=== PATIENT | female | born 1940 | race Two or more races ===

== ENCOUNTER 2017-03-28 23:07 | Inpatient (IN) | payer SELFPAY ==
[~2017-03-28] VITALS: Ht 162.6 cm; Wt 93.0 kg
[2017-03-28 23:16] VITALS: BP 170/83
[2017-03-28 23:51] LABS: BASOPHILS % (AUTO) 0.7 % (0.0-2.0); EOSINOPHILS % (AUTO) 0.7 % (0.0-3.0); LYMPHOCYTES % (AUTO) 13.5 % (20.0-45.0); MEAN CORPUSCULAR HEMOGLOBIN 31.8 PG (27.0-31.0); MEAN CORPUSCULAR HGB CONC 33.4 G/DL (32.0-36.0); MEAN CORPUSCULAR VOLUME 95 FL (80-99); MEAN PLATELET VOLUME 6.9 FL (6.5-10.1); MONOCYTES % (AUTO) 9.8 % (1.0-10.0); NEUTROPHILS % (AUTO) 75.3 % (45.0-75.0); PLATELET COUNT 204 K/UL (150-450); RED BLOOD COUNT 4.45 M/UL (4.20-5.40); RED CELL DISTRIBUTION WIDTH 13.1 % (11.6-14.8); WHITE BLOOD COUNT 13.8 K/UL (4.8-10.8)
[2017-03-29] VITALS (7 sets, daily range): BP systolic 114–139; BP diastolic 63–84
[2017-03-29 00:09] LABS: TROPONIN I < 0.30 ng/mL (<=0.30)
[2017-03-29 00:12] LABS: ALANINE AMINOTRANSFERASE 16 U/L (3-33); ANION GAP 16 (5-15); ASPARTATE AMINO TRANSFERASE 20 U/L (5-40); CALCIUM 9.1 mg/dL (8.6-10.2); CARBON DIOXIDE 25 mEQ/L (20-30); CHLORIDE 94 mEQ/L (98-107); CREATININE 0.8 mg/dL (0.5-0.9); HEMOLYSIS 3; POTASSIUM 4.3 mEQ/L (3.4-4.9); SODIUM 135 mEQ/L (135-145); TOTAL PROTEIN 7.7 g/dL (6.6-8.7)
[2017-03-29] MEDS ORDERED: Morphine Sulfate 2mg/ml Inj IVP ONE (00:15)
[2017-03-29 00:22] LABS: CKMB < 1.5 ng/mL (< 3.8)
--- NOTE | 2017-03-29 00:23 | Emergency Room Report ---
History of Present Illness General Chief Complaint: Chest Pain Source: Patient, Family Member, EMS Present Illness HPI [id number] BIBEMS for chest pain since 7pm. Pain is sharp constant, central, non- radiating. Worse with inspiration. No recent fever/chills, SOB, abd pain, nausea/vomiting, diarrhea. No previous AMI, PE. No leg pain/swelling. Takes ibuprofen ocassionaly for left knee pain. Was given nitro spray by EMS. History of HTN. No other medical problems. Denies ETOH, smoking, drugs. Allergies: Coded Allergies: No Known Allergies (Unverified , 03/28/17) Patient History Past Medical History: HTN Past Surgical History: none Pertinent Family History: none Social History: Denies: alcohol use, drug use, smoking Last Menstrual Period: NONE Now: No Immunizations: UTD Reviewed Nursing Documentation: PMH: Agreed, PSxH: Agreed Nursing Documentation-PMH Past Medical History: No History, Except For Hx Hypertension: Yes Review of Systems All Other Systems: negative except mentioned in HPI Physical Exam Vital Signs Date Time Temp Pulse Resp B/P Pulse Ox O2 Delivery O2 Flow Rate FiO2 03/28/17 23:13 98.1 72 18 170/83 98 Room Air Sp02 EP Interpretation: reviewed, abnormal General Appearance: normal inspection, well appearing, alert, GCS 15, non-toxic , mild distress Head: normocephalic, atraumatic Eyes: bilateral eye EOMI, bilateral eye PERRL ENT: normal ENT inspection, hearing grossly normal, normal voice Neck: normal inspection, full range of motion, supple, no bony tend Respiratory: normal inspection, lungs clear, normal breath sounds, no rhonchi, no respiratory distress, no retraction, no accessory muscle use, no wheezing, other - Chest pain very reproducible midline Cardiovascular #1: regular rate, rhythm, no edema Gastrointestinal: normal inspection, normal bowel sounds, non tender, soft, no guarding, no hernia Genitourinary: no CVA tenderness Neurologic: normal inspection, alert, oriented x3, responsive, 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 I attest that this information is true, accurate and complete to the best of my knowledge. I understand that any falsification, omission, or concealment of material fact may subject me to administrative, civil, or criminal liability. This patient warrants hospital admission for extreme of age and has a condition that cannot be treated as outpatient. Diagnostic Impression: Primary Impression: Chest pain Qualified Codes: R07.1 - Chest pain on breathing Additional Impression: Pericardial effusion without cardiac tamponade ER Course Chest pain - Leuks 13.8K, likely reactionary. - No cough, fever/chills, other clinical signs of PNA. CXR does not show PNA - ECG shows TWI in V 1-3. Troponin 0. Low voltage - Mildly elevated D-dimer - CTA: No PE, 8mm of pericardial effusion - Bedside echo does not show tamponade - Will elevated leuks 13k, trace pericardial effusion, chest pain, ?alex/ myocarditis - Improved pain s/p morphine, toradol - Endorsed to Dr Gant for tele bed at 2am - Still needs ACS rule out EKG Diagnostic Results Rate: normal Rhythm: NSR ST Segments: other - TWI in V1-3 Other Impression Low voltage ASA given to the pt in ED: No Rhythm Strip Diag. Results EP Interpretation: yes Rate: 73 Rhythm: NSR, no PVC's, no ectopy Chest X-Ray Diagnostic Results EP Interpretation: Yes Findings: no consolidation, no effusion, no pneumothorax, no acute cardiopulmonary disease Number of Views: 1 Last Vital Signs Date Time Temp Pulse Resp B/P Pulse Ox O2 Delivery O2 Flow Rate FiO2 03/28/17 23:16 72 18 Room Air 03/28/17 23:14 98.1 170/83 95 Status: improved Disposition: ADMITTED INPATIENT Condition: Serious Referrals: NOT CHOSEN IPA/,REFERRING (PCP) WILEY SHIRLEY M.D. March 29, 2017 00:23
[2017-03-29] MEDS ORDERED: IBUPROFEN600 MG ORAL (01:49)
[2017-03-29] MEDS ORDERED: LOSARTAN POTASS25 M1 PO (01:49)
[2017-03-29] MEDS ORDERED: Ketorolac 30mg Inj IV ONE (02:15)
[2017-03-29] MEDS ORDERED: DuoNeb 0.5-3(2.5)mg/3ml neb HHN PRN (06:45)
[2017-03-29] MEDS ORDERED: Diltiazem 25mg/5ml IV PRN (06:45)
[2017-03-29] MEDS ORDERED: Enalaprilat 2.5mg/2ml Inj IV PRN (06:45)
[2017-03-29] MEDS ORDERED: Nitroglycerin Subl 0.4mg tab (Bottle Of 25) SL PRN (06:45)
[2017-03-29] MEDS ORDERED: Ketorolac 30mg Inj IV PRN ×2 (06:45→22:00)
[2017-03-29] MEDS ORDERED: Morphine Sulfate 2mg/ml Inj IVP PRN (06:45)
[2017-03-29] MEDS ORDERED: Miralax 17gm pkt ORAL PRN (06:45)
[2017-03-29] MEDS: Aspirin Baby 81mg ORAL SCH (08:24)
[2017-03-29] MEDS: Heparin 5000 units/ml inj SUBQ SCH ×2 (08:29→21:27)
--- NOTE | 2017-03-29 08:59 | Diagnostic Imaging Report ---
Indication: Abdominal Pain Technique: Continuous helical transaxial imaging of the chest, abdomen and pelvis was obtained from the thoracic inlet to the pubic symphysis during rapid intravenous contrast administration. Arterial phase of enhancement obtained. Coronal 2-D reformats were also obtained and maximum intensity projection images in multiple planes. Study obtained in a Siemens sensation [address] Total Dose length Product (DLP): [address] Dose Index Volume (CTDIvol): 8, 81, 22 mGy Comparison: None Findings: There is reasonable opacification of the pulmonary artery. No filling defect to suggest pulmonary embolus. The thoracic aorta and abdominal aorta appear tortuous and atherosclerotic disease. Some elongation noted but no evidence of dissection or aneurysm. The major thoracic arch vessels including the brachiocephalic artery, left common carotid artery and subclavian arteries appear normal at their origins. Celiac artery, SMA, single, bilateral renal arteries and the SARINA appear widely patent. Common and external iliac arteries are unremarkable. There is a small pericardial effusion. The heart is enlarged. Reticular densities are noted at the periphery of the lower lobes. Some of this is likely due to atelectasis. Some degree of mild fibrosis not excluded. There is no consolidation or pleural effusion identified. The liver is low in attenuation consistent with fatty infiltration. There is some breathing motion artifact present. The gallbladder is grossly unremarkable in appearance. Few diverticula are noted within the colon. No definite evidence of diverticulitis. The uterus is absent. Impression: Evidence of mild atherosclerotic vascular disease. No evidence of aneurysm or dissection. No evidence of pulmonary embolus grossly evaluated. Small pericardial effusion versus thickening. Cardiac enlargement Basilar atelectasis and/or fibrosis. Status post hysterectomy Diverticulosis of the colon Fatty liver. Breathing motion artifact [facility] has communicated the preliminary results to the Emergency Department. Their findings are largely concordant with this report. The CT scanner at [facility] is accredited by the [employer] [place] [employer] and the scans are performed using dose optimization techniques as appropriate to a performed exam including Automatic Exposure control.
[2017-03-29] MEDS ORDERED: Losartan 25mg tab ORAL SCH (09:00)
[2017-03-29] MEDS ORDERED: Pneumococcal Vaccine 25mcg/0.5ml IM ONE (09:00)
[2017-03-29 10:40] LABS: TROPONIN I < 0.30 ng/mL (<=0.30)
--- NOTE | 2017-03-29 10:45 | Consultation ---
DATE OF CONSULTATION: 03/29/2017 CARDIOLOGY CONSULTATION CONSULTING PHYSICIAN: Musa Puga M.D. REFERRING PHYSICIAN: Stacey Morales M.D. REASON FOR CONSULTATION: Management of chest pain. HISTORY OF PRESENT ILLNESS: The patient is a very pleasant 76-year-old female, who presents to emergency department with chest pain, which is described as sharp, pleuritic, nonradiating, worse with inspiration and not associated with shortness of breath, nausea vomiting, or diaphoresis. The patient does not have any prior history of coronary artery disease or congestive heart failure. She has not had any change in exercise tolerance in the past couple of weeks. On arrival to the emergency department, initial D-dimer was elevated. The patient underwent a CT angiography of the chest, which ruled out pulmonary embolism. A 12-lead electrocardiogram done by the paramedics en route showed no evidence of acute ischemic changes although it was significant for right bundle-branch block and some possible old inferior lateral infarct. The patient was admitted to telemetry for further evaluation and management. PAST MEDICAL HISTORY: Hypertension. PAST SURGICAL HISTORY: None. MEDICATIONS: Medication at home, losartan 25 mg p.o. daily and ibuprofen 600 mg four times daily. SOCIAL HISTORY: Denies any tobacco, alcohol, or illicit drug use. FAMILY HISTORY: No premature coronary artery disease in first-degree relatives. REVIEW OF SYSTEMS: A 12-system review done essentially negative except what mentioned in the history of present illness PHYSICAL EXAMINATION: VITAL SIGNS: Blood pressure at time of arrival to the hospital was 170/83, respirations 18, pulse of 72, temperature 98.1 degrees Fahrenheit, and O2 saturation of 95% on room air. GENERAL: The patient is a very pleasant, obese 76-year-old, female, in no apparent respiratory distress. Alert and oriented x4. HEENT: Atraumatic and normocephalic. Anicteric. Pupils are equal, round, and reactive to light and accommodation. Extraocular muscles are intact. NECK: JVP is less than 5 cm. No carotid bruits. Carotid upstroke is 2+ bilaterally. CARDIOVASCULAR: Normal S1 and S2. Regular rate and rhythm. No murmurs, gallops, or rubs. PMI is at fourth intercostal space at the midclavicular line. There is tenderness over the left side of the chondrocostal like joint. Tenderness also exenterated with the patient moving from the supine position to the left lateral position. LUNGS: Lungs are clear to auscultation bilaterally. ABDOMEN: Soft, nontender, and nondistended. Obese. No hepatosplenomegaly. Positive bowel sounds. EXTREMITIES: No evidence of edema, clubbing, or cyanosis. LABORATORY AND DIAGNOSTIC DATA: Laboratory findings, D-dimer was 571. Sodium was 135, potassium 4.3, chloride 94, bicarbonate 25, BUN of 19, creatinine 0.8, glucose 192, and calcium is 9.1. Troponin I x1 is less than 0.3. WBC is 13.8, hemoglobin of 14.2, hematocrit of 42.4, and platelet count of 204,000. A 12-lead electrocardiogram, shows sinus rhythm, heart rate of 80 with right bundle-branch block, possible old inferior wall infarct, possible old anterolateral infarct. No acute ST and T-wave abnormalities, although there is nonspecific ST and T-wave changes. Chest showed no evidence of pulmonary embolism. A CT angiography of chest. ASSESSMENT AND PLAN: The patient is a very unfortunate 76-year-old female, who presents to the hospital with what seems to be an noncardiac chest pain likely due to musculoskeletal etiology as there is presence of a tenderness over the costochondral joint on the left sternal border, which is worse with inspiration and movement. I would believe that the nonsteroidal anti-inflammatory medication is treatment of choice. We will obtain 12-lead electrocardiogram this morning. The first troponin is negative. There was no acute ischemic features on the ECG obtained from the paramedics. The patient can be discharged, require Lexiscan . We will continue with a second troponin measurements to rule out acute myocardial infarction. I would like to thank, Dr. Morales and Dr. Gant for allowing me to participate in care of this patient. Musa Puga M.D. DR: Homer JOB#: [id number] CC:
--- NOTE | 2017-03-29 12:02 | Diagnostic Imaging Report ---
Indication: Dyspnea Comparison: None A single view chest radiograph was obtained. Findings: No definite infiltrate or pulmonary vascular congestion identified. The heart is enlarged. The aorta is mildly enlarged consistent with atherosclerotic vascular disease. The bones are osteopenic. Impression: No acute disease
--- NOTE | 2017-03-29 13:01 | Consultation ---
History of Present Illness General Date patient seen: March 29, 2017 Chief Complaint: Chest Pain Present Illness HPI 76 year old female with hx of HTN, presented to [facility] ER for chest pain since 7pm. Pain is sharp constant, central, non-radiating. Worse with inspiration. Had a CT angio in ER, PE was ruled out. Admitted for further w/u. Allergies: Coded Allergies: No Known Allergies (Unverified , 03/28/17) Medication History Scheduled Ibuprofen* (Motrin*), 600 MG ORAL FOUR TIMES A DAY, (Reported) Miscellaneous Medications Losartan Potassium (Losartan Potassium), Unknown Dose PO, (Reported) Patient History Healthcare decision maker Resuscitation status Full Code Advanced Directive on File Past Medical/Surgical History Past Medical/Surgical History: (1) HTN (hypertension) (2) ACS (acute coronary syndrome) Review of Systems All Other Systems: negative except mentioned in HPI Physical Exam General Appearance: WD/WN Lines, tubes and drains: peripheral, central line Neck: non-tender, normal alignment Respiratory/Chest: chest wall non-tender, lungs clear Cardiovascular/Chest: normal peripheral pulses, normal rate Abdomen: normal bowel sounds, non tender Genitourinary/Rectal: normal genital exam, normal rectal exam Extremities: normal range of motion, non-tender Last 24 Hour Vital Signs Date Time Temp Pulse Resp B/P Pulse Ox O2 Delivery O2 Flow Rate FiO2 03/29/17 12:00 98.0 87 17 134/63 98 Room Air 03/29/17 08:45 122/73 03/29/17 08:00 71 03/29/17 08:00 98.1 72 17 122/73 96 Room Air 03/29/17 04:00 97.9 103 18 129/84 99 Room Air 03/29/17 03:35 98.0 67 18 114/57 100 Room Air 03/29/17 03:16 98.0 67 18 114/75 96 Room Air 03/29/17 01:16 98.1 65 16 134/79 98 Room Air 03/29/17 00:50 98.0 03/28/17 23:16 98.1 18 170/83 95 Room Air 03/28/17 23:16 72 18 Room Air 03/28/17 23:14 98.1 72 18 170/83 95 Room Air 03/28/17 23:13 98.1 72 18 170/83 98 Room Air Intake and Output 03/28/17 03/29/17 19:00 07:00 Intake Total 0 ml Balance 0 ml Intake Other 0 ml # Voids 1 Laboratory Tests Test 03/28/17 23:34 03/29/17 00:19 03/29/17 09:50 White Blood Count 13.8 K/UL (4.8-10.8) H Red Blood Count 4.45 M/UL (4.20-5.40) Hemoglobin 14.2 G/DL (12.0-16.0) Hematocrit 42.4 % (37.0-47.0) Mean Corpuscular Volume 95 FL (80-99) Mean Corpuscular Hemoglobin 31.8 PG (27.0-31.0) H Mean Corpuscular Hemoglobin Concent 33.4 G/DL (32.0-36.0) Red Cell Distribution Width 13.1 % (11.6-14.8) Platelet Count 204 K/UL (150-450) Mean Platelet Volume 6.9 FL (6.5-10.1) Neutrophils (%) (Auto) 75.3 % (45.0-75.0) H Lymphocytes (%) (Auto) 13.5 % (20.0-45.0) L Monocytes (%) (Auto) 9.8 % (1.0-10.0) Eosinophils (%) (Auto) 0.7 % (0.0-3.0) Basophils (%) (Auto) 0.7 % (0.0-2.0) Sodium Level 135 mEQ/L (135-145) Potassium Level 4.3 mEQ/L (3.4-4.9) Chloride Level 94 mEQ/L (98-107) L Carbon Dioxide Level 25 mEQ/L (20-30) Anion Gap 16 (5-15) H Blood Urea Nitrogen 19 mg/dL (7-23) Creatinine 0.8 mg/dL (0.5-0.9) Estimat Glomerular Filtration Rate mL/min (>60) Glucose Level 192 mg/dL (74-106) H Calcium Level 9.1 mg/dL (8.6-10.2) Total Bilirubin 0.6 mg/dL (0.0-1.2) Aspartate Amino Transf (AST/SGOT) 20 U/L (5-40) Alanine Aminotransferase (ALT/SGPT) 16 U/L (3-33) Alkaline Phosphatase 84 U/L (35-104) Total Creatine Kinase 67 U/L (26-140) Creatine Kinase MB < 1.5 ng/mL (< 3.8) Creatine Kinase MB Relative Index 2.2 Troponin I < 0.30 ng/mL (<=0.30) < 0.30 ng/mL (<=0.30) Total Protein 7.7 g/dL (6.6-8.7) Albumin 3.9 g/dL (3.5-5.2) Globulin 3.8 g/dL Albumin/Globulin Ratio 1.0 (1.0-2.7) D-Dimer 571 ng/mL (<500) H Height (Feet): 5 Height (Inches): 4.00 Weight (Pounds): 205 Medications Current Medications Medications (Trade) Dose Ordered Sig/Bernardo Route PRN Reason Start Time Stop Time Status Last Admin Dose Admin Acetaminophen (Tylenol) 650 mg Q4H PRN ORAL FEVER 03/29/17 06:45 04/28/17 06:44 Albuterol/ Ipratropium (DuoNeb 0.5-3(2.5)mg/3ml) 3 ml Q4H PRN HHN Shortness of Breath 03/29/17 06:45 04/03/17 06:44 Aspirin (ASA) 162 mg DAILY ORAL 03/29/17 09:00 04/28/17 08:59 03/29/17 08:24 Diltiazem HCl (Cardizem) 10 mg EVERY HOUR PRN IV heart rate more than 120, 03/29/17 06:45 04/28/17 06:44 Enalaprilat (Vasotec) 2.5 mg EVERY 6 HOURS PRN IV sbp more than 160 03/29/17 06:45 04/28/17 06:44 Heparin Sodium (Porcine) (Heparin 5000 units/ml) 5,000 units EVERY 12 HOURS SUBQ 03/29/17 09:00 04/28/17 08:59 03/29/17 08:29 Ketorolac Tromethamine (Toradol 30mg) 30 mg Q6HR PRN IV moderate pain ( 4-6) 03/29/17 06:45 04/03/17 06:44 Morphine Sulfate (Morphine Sulfate) 2 mg Q4H PRN IVP severe Pain (Pain Scale 7-10) 03/29/17 06:45 04/05/17 06:44 03/29/17 06:50 Nitroglycerin (Ntg) 0.4 mg Every 5 Minutes PRN SL Prn Chest Pain 03/29/17 06:45 04/28/17 06:44 Ondansetron HCl (Zofran) 4 mg Q6H PRN IVP Nausea & Vomiting 03/29/17 06:45 04/28/17 06:44 Pantoprazole (Protonix) 40 mg DAILY ORAL 03/29/17 09:00 04/28/17 08:59 03/29/17 08:24 Polyethylene Glycol (Miralax) 17 gm DAILYPRN PRN ORAL Constipation 03/29/17 06:45 04/28/17 06:44 Temazepam (Restoril) 15 mg HSPRN PRN ORAL Insomnia 03/29/17 06:45 04/05/17 06:44 Triamterene/HCTZ (Dyazide) 1 tab DAILY ORAL 03/30/17 09:00 04/29/17 08:59 Assessment/Plan Problem List: (1) ACS (acute coronary syndrome) ICD Codes: I24.9 - Acute ischemic heart disease, unspecified SNOMED: 042676196 (2) Costochondritis ICD Codes: M94.0 - Chondrocostal junction syndrome [Tietze] SNOMED: 63319619 (3) GERD (gastroesophageal reflux disease) ICD Codes: K21.9 - Gastro-esophageal reflux disease without esophagitis SNOMED: 356217526 (4) HTN (hypertension) ICD Codes: I10 - Essential (primary) hypertension SNOMED: 65858664 Assessment/Plan serial ekg troponin cardiology note appreciated echo noted dc home when ok with cardio MIGUEL GILBERT March 29, 2017 13:01
--- NOTE | 2017-03-29 16:39 | History & Physical ---
History and Physical History & Physicial Dictated for Int Med-Dr. Gant no. [id number] GLADYS HARRIS March 29, 2017 16:39
--- NOTE | 2017-03-29 20:01 | History and Physical Report ---
DATE OF ADMISSION: 03/29/2017 CHIEF COMPLAINT: The patient is a 76-year-old female, presents with complaint of chest pain. HISTORY OF PRESENT ILLNESS: Began yesterday prior to dinner. The patient began to experience substernal chest pain. Chest pain did not radiate to the jaw or to the shoulder. The patient states the pain was constant. Pain was 7 to 9 out of intensity. The patient was transported to [place] emergency room. Initial troponin level was negative. The patient is admitted for chest pain to rule out acute coronary syndrome. PAST MEDICAL HISTORY: Significant for hypertension. PAST SURGICAL HISTORY: Significant for, 1. Total abdominal hysterectomy. 2. Appendectomy. CURRENT MEDICATIONS: 1. Losartan 25 mg one tablet p.o. daily . 2. Ibuprofen 600 mg one tablet p.o. every 6 hours p.r.n. ALLERGIES: No known drug allergies. SOCIAL HISTORY: The patient is a and lives with her adult daughter. The patient denies tobacco use. The patient admits to rare alcohol use. REVIEW OF SYSTEMS: Constitutional: The patient denies weight loss or weight gain. The patient denies fevers or chills. HEENT: The patient denies ear or throat pain. The patient denies headache. Cardiovascular: The patient complains of chest pain as above. The patient denies palpitations. Abdomen: The patient denies nausea, vomiting, diarrhea, or constipation. Genitourinary: The patient denies dysuria or increased frequency of urination. Neuromuscular: The patient denies seizures or generalized weakness. PHYSICAL EXAMINATION: VITAL SIGNS: Temperature 98.0 degrees, respirations 18, pulse 67, and blood pressure 114/57. GENERAL: The patient is a well-developed and well-nourished female, in no apparent distress. HEENT: Eyes, pupils are equal and responsive to light and accommodation. Extraocular movements are intact. NECK: Supple without lymphadenopathy. CHEST: Lungs are clear to auscultation bilaterally without wheezes or rales. CARDIOVASCULAR: Regular rate. S1 and S2 normal without murmurs, rubs, or gallops. ABDOMEN: Soft, nontender, and nondistended. Positive bowel sounds. No evidence of hepatosplenomegaly. Currently, no rebound or guarding. EXTREMITIES: Negative for clubbing, cyanosis, or edema. RECTAL: Refused. GENITAL: Refused. NEUROLOGIC: Cranial nerves II through XII are grossly intact without focal deficits. Motor strength is 5/5 bilaterally. Deep tendon reflexes are 2+ plantar. LABORATORY STUDIES: WBC 13.8, hemoglobin 14.4, hematocrit 42.4, and platelets 204,000. Sodium 135, potassium 4.3, chloride 94, CO2 29, BUN 19, creatinine 0.8, and glucose 192. Troponin less than 0.3. ASSESSMENT: This is a 76-year-old female, 1. Chest pain. 2. Hypertension. 3. Hyperglycemia. TREATMENT: 1. Chest pain. A Cardiology consultation has been obtained with Dr. Musa Puga. An echocardiogram is pending. We will follow recommendations of Dr. Puga. Serial troponin levels to be obtained. 2. Hypertension. Continue losartan as above. 3. Hyperglycemia. The patient does not have a history of diabetes. Accu-Cheks will be performed before meals and at bedtime. Hemoglobin A1c is pending. Duran Edwards M.D. DR: Mili JOB#: [id number] CC:
[2017-03-30] VITALS: BP 145/76
[2017-03-30 04:00] VITALS: BP 146/76
[2017-03-30 04:45] VITALS: BP 123/60
--- NOTE | 2017-03-30 07:24 | Pulmonology Progress Note ---
Assessment/Plan Assessment/Plan ASSESSMENT noncardiac chest pain ACS was ruled out HTN likely costochondritis mild pulmonary HTN episode of PAF hyperglycemia PLAN OF CARE tele serial troponin negative ECG revealed SR, RBBB, but no acute ischemic changes cardio follows ruled out for ACS CP reproducible on palpation, worse with inspiration, likely costochondritis, recommended NSAIDs for pain control CT chest angio negative for PE (done in ER due to elevated D dimer and complaints of chest pain) ECHO with EF 55-60% and RVS of 44 c/w mild pulmonary HTN on ASA BP management with current regimen, stable BS management with SS of insulin [id number] qualified her for DM , further management per PMD GI, DVT prophylaxis cardio cleared for discharge cardio was informed re episode of PAF. may need outpt Holter to monitor for further evidence of A fib dc plan , stable for dc from pulmonary standpoint fup with PMD next week case discussed and evaluated by supervising physician Subjective Allergies: Coded Allergies: No Known Allergies (Unverified , 03/28/17) Subjective feeling better denies chest pain, SOB, palpitations, dizziness per staff episode of A fib overnight, converted to SR currently Objective Last 24 Hour Vital Signs Date Time Temp Pulse Resp B/P Pulse Ox O2 Delivery O2 Flow Rate FiO2 03/30/17 04:45 101 20 123/60 96 Nasal Cannula 2.0 03/30/17 04:00 98.6 87 20 146/76 94 Nasal Cannula 2.0 28 03/30/17 04:00 116 03/30/17 00:00 81 03/30/17 00:00 98.6 85 20 145/76 94 Nasal Cannula 2.0 28 03/29/17 20:23 98.6 90 20 137/75 94 Nasal Cannula 2.0 03/29/17 20:00 89 03/29/17 19:43 90 18 98 Nasal Cannula 2.0 28 03/29/17 19:42 89 18 Nasal Cannula 2.0 28 03/29/17 19:38 89 18 94 Nasal Cannula 2.0 28 03/29/17 16:00 84 03/29/17 16:00 98.8 80 18 139/63 98 Room Air 03/29/17 12:00 98.0 87 17 134/63 98 Room Air 03/29/17 11:27 79 03/29/17 08:45 122/73 03/29/17 08:00 71 03/29/17 08:00 98.1 72 17 122/73 96 Room Air Intake and Output 03/29/17 03/30/17 19:00 07:00 Intake Total 1120 ml 560 ml Balance 1120 ml 560 ml Intake Oral 1120 ml 560 ml Other 0 ml # Voids 2 1 # Bowel Movements 1 1 General Appearance: WD/WN, no acute distress, other - awake, alert, oriented elderly Malagasy speaking female HEENT: normocephalic, atraumatic, anicteric, mucous membranes moist Respiratory/Chest: lungs clear - with moderate air entry , no respiratory distress, no accessory muscle use Cardiovascular: normal peripheral pulses, normal rate - SR on tele, regular rhythm Abdomen: normal bowel sounds, soft, non tender - obese Genitourinary: normal external genitalia Neurologic/Psychiatric: alert, responsive Laboratory Tests 03/29/17 09:50: Troponin I < 0.30 Current Medications Medications (Trade) Dose Ordered Sig/Bernardo Route PRN Reason Start Time Stop Time Status Last Admin Dose Admin Acetaminophen (Tylenol) 650 mg Q4H PRN ORAL FEVER 03/29/17 06:45 04/28/17 06:44 Albuterol/ Ipratropium (DuoNeb 0.5-3(2.5)mg/3ml) 3 ml Q4H PRN HHN Shortness of Breath 03/29/17 06:45 04/03/17 06:44 Aspirin (ASA) 162 mg DAILY ORAL 03/29/17 09:00 04/28/17 08:59 03/29/17 08:24 Diltiazem HCl (Cardizem) 10 mg EVERY HOUR PRN IV heart rate more than 120, 03/29/17 06:45 04/28/17 06:44 Enalaprilat (Vasotec) 2.5 mg EVERY 6 HOURS PRN IV sbp more than 160 03/29/17 06:45 04/28/17 06:44 Heparin Sodium (Porcine) (Heparin 5000 units/ml) 5,000 units EVERY 12 HOURS SUBQ 03/29/17 09:00 04/28/17 08:59 03/29/17 21:27 Ketorolac Tromethamine (Toradol 30mg) 15 mg Q8H PRN IV Moderate Pain (Pain Scale 4-6) 03/29/17 22:00 04/03/17 21:59 Morphine Sulfate (Morphine Sulfate) 2 mg Q4H PRN IVP severe Pain (Pain Scale 7-10) 03/29/17 06:45 04/05/17 06:44 03/29/17 06:50 Nitroglycerin (Ntg) 0.4 mg Every 5 Minutes PRN SL Prn Chest Pain 03/29/17 06:45 04/28/17 06:44 Ondansetron HCl (Zofran) 4 mg Q6H PRN IVP Nausea & Vomiting 03/29/17 06:45 04/28/17 06:44 Pantoprazole (Protonix) 40 mg DAILY ORAL 03/29/17 09:00 04/28/17 08:59 03/29/17 08:24 Polyethylene Glycol (Miralax) 17 gm DAILYPRN PRN ORAL Constipation 03/29/17 06:45 04/28/17 06:44 Temazepam (Restoril) 15 mg HSPRN PRN ORAL Insomnia 03/29/17 06:45 04/05/17 06:44 Triamterene/HCTZ (Dyazide) 1 tab DAILY ORAL 03/30/17 09:00 04/29/17 08:59 Renny ([facility])Marlen NP March 30, 2017 07:24
[2017-03-30 07:33] LABS: BASOPHILS % (AUTO) 1.1 % (0.0-2.0); EOSINOPHILS % (AUTO) 0.8 % (0.0-3.0); LYMPHOCYTES % (AUTO) 18.5 % (20.0-45.0); MEAN CORPUSCULAR HEMOGLOBIN 31.1 PG (27.0-31.0); MEAN CORPUSCULAR HGB CONC 32.3 G/DL (32.0-36.0); MEAN CORPUSCULAR VOLUME 96 FL (80-99); MEAN PLATELET VOLUME 7.9 FL (6.5-10.1); NEUTROPHILS % (AUTO) 67.7 % (45.0-75.0); PLATELET COUNT 177 K/UL (150-450); RED BLOOD COUNT 4.29 M/UL (4.20-5.40); RED CELL DISTRIBUTION WIDTH 13.1 % (11.6-14.8); WHITE BLOOD COUNT 12.1 K/UL (4.8-10.8)
[2017-03-30 07:40] LABS: INR 1.2 (0.9-1.1); PROTHROMBIN TIME 11.9 SEC (9.30-11.50)
[2017-03-30 07:57] LABS: PHOSPHORUS 2.9 mg/dL (2.5-4.8)
[2017-03-30 08:01] LABS: TROPONIN I < 0.30 ng/mL (<=0.30)
[2017-03-30 08:03] LABS: ALANINE AMINOTRANSFERASE 12 U/L (3-33); ALBUMIN/GLOBULIN RATIO 0.9 (1.0-2.7); ASPARTATE AMINO TRANSFERASE 14 U/L (5-40); CALCIUM 8.7 mg/dL (8.6-10.2); CHLORIDE 98 mEQ/L (98-107); CHOLESTEROL 127 mg/dL (< 200); CHOLESTEROL/HDL RATIO 2.5 (3.3-4.4); CREATININE 0.8 mg/dL (0.5-0.9); CRP QUANT 15.7 mg/dL (< 0.5); HEMOLYSIS 5; LDL CHOLESTEROL (CALC.) 64 mg/dL (60-99); POTASSIUM 4.3 mEQ/L (3.4-4.9); SODIUM 138 mEQ/L (135-145); TOTAL PROTEIN 6.5 g/dL (6.6-8.7)
[2017-03-30 08:10] VITALS: BP 133/75
[2017-03-30 08:26] LABS: ANION GAP 17 (5-15); CARBON DIOXIDE 23 mEQ/L (20-30)
[2017-03-30] MEDS ORDERED: Dyazide 18.75/12.5mg tab ORAL SCH (09:00)
[2017-03-30] MEDS: Aspirin Baby 81mg ORAL SCH (10:32)
[2017-03-30] MEDS: Heparin 5000 units/ml inj SUBQ SCH (10:34)
[2017-03-30] MEDS ORDERED: Digoxin 0.5mg/2ml Inj IVP ONE (11:15)
[2017-03-30 11:16] VITALS: BP 145/71
--- NOTE | 2017-03-30 13:16 | Internal Med Progress Note ---
Subjective Date of Service: March 30, 2017 Physician Name GraceGladys Attending Physician Julio Gant MD Current Medications Medications (Trade) Dose Ordered Sig/Bernardo Route PRN Reason Start Time Stop Time Status Last Admin Dose Admin Acetaminophen (Tylenol) 650 mg Q4H PRN ORAL FEVER 03/29/17 06:45 04/28/17 06:44 Albuterol/ Ipratropium (DuoNeb 0.5-3(2.5)mg/3ml) 3 ml Q4H PRN HHN Shortness of Breath 03/29/17 06:45 04/03/17 06:44 Aspirin (ASA) 162 mg DAILY ORAL 03/29/17 09:00 04/28/17 08:59 03/30/17 10:32 Dextrose (Dextrose 50%) STAT PRN IV Hypoglycemia 03/30/17 13:00 04/29/17 12:59 Diltiazem HCl (Cardizem) 10 mg EVERY HOUR PRN IV heart rate more than 120, 03/29/17 06:45 04/28/17 06:44 Enalaprilat (Vasotec) 2.5 mg EVERY 6 HOURS PRN IV sbp more than 160 03/29/17 06:45 04/28/17 06:44 Heparin Sodium (Porcine) (Heparin 5000 units/ml) 5,000 units EVERY 12 HOURS SUBQ 03/29/17 09:00 04/28/17 08:59 03/30/17 10:34 Insulin Aspart (NovoLOG) BEFORE MEALS AND HS SUBQ 03/30/17 16:30 04/29/17 16:29 Ketorolac Tromethamine (Toradol 30mg) 15 mg Q8H PRN IV Moderate Pain (Pain Scale 4-6) 03/29/17 22:00 04/03/17 21:59 Morphine Sulfate (Morphine Sulfate) 2 mg Q4H PRN IVP severe Pain (Pain Scale 7-10) 03/29/17 06:45 04/05/17 06:44 03/29/17 06:50 Nitroglycerin (Ntg) 0.4 mg Every 5 Minutes PRN SL Prn Chest Pain 03/29/17 06:45 04/28/17 06:44 Ondansetron HCl (Zofran) 4 mg Q6H PRN IVP Nausea & Vomiting 03/29/17 06:45 04/28/17 06:44 Pantoprazole (Protonix) 40 mg DAILY ORAL 03/29/17 09:00 04/28/17 08:59 03/30/17 10:32 Polyethylene Glycol (Miralax) 17 gm DAILYPRN PRN ORAL Constipation 03/29/17 06:45 04/28/17 06:44 03/30/17 11:59 Temazepam (Restoril) 15 mg HSPRN PRN ORAL Insomnia 03/29/17 06:45 04/05/17 06:44 Triamterene/HCTZ (Dyazide) 1 tab DAILY ORAL 03/30/17 09:00 04/29/17 08:59 03/30/17 11:02 Allergies: Coded Allergies: No Known Allergies (Unverified , 03/28/17) ROS Limited/Unobtainable: No Constitutional: Reports: no symptoms HEENT: Reports: no symptoms Cardiovascular: Reports: no symptoms Respiratory: Reports: no symptoms Gastrointestinal/Abdominal: Reports: no symptoms Genitourinary: Reports: no symptoms Neurologic/Psychiatric: Reports: no symptoms Subjective 76 YO F admitted with chest pain. Cover for Int Chepe-Dr Gant. Objective Last Vital Signs Date Time Temp Pulse Resp B/P Pulse Ox O2 Delivery O2 Flow Rate FiO2 03/30/17 12:02 125 03/30/17 11:16 98.3 18 145/71 03/30/17 08:10 94 Nasal Cannula 2.0 03/30/17 04:00 28 Laboratory Tests Test 03/30/17 07:00 White Blood Count 12.1 K/UL (4.8-10.8) H Red Blood Count 4.29 M/UL (4.20-5.40) Hemoglobin 13.4 G/DL (12.0-16.0) Hematocrit 41.3 % (37.0-47.0) Mean Corpuscular Volume 96 FL (80-99) Mean Corpuscular Hemoglobin 31.1 PG (27.0-31.0) H Mean Corpuscular Hemoglobin Concent 32.3 G/DL (32.0-36.0) Red Cell Distribution Width 13.1 % (11.6-14.8) Platelet Count 177 K/UL (150-450) Mean Platelet Volume 7.9 FL (6.5-10.1) Neutrophils (%) (Auto) 67.7 % (45.0-75.0) Lymphocytes (%) (Auto) 18.5 % (20.0-45.0) L Monocytes (%) (Auto) 12.0 % (1.0-10.0) H Eosinophils (%) (Auto) 0.8 % (0.0-3.0) Basophils (%) (Auto) 1.1 % (0.0-2.0) Erythrocyte Sedimentation Rate 47 MM/HR (0-30) H Prothrombin Time 11.9 SEC (9.30-11.50) H Prothromb Time International Ratio 1.2 (0.9-1.1) H Activated Partial Thromboplast Time 37 SEC (23-33) H Sodium Level 138 mEQ/L (135-145) Potassium Level 4.3 mEQ/L (3.4-4.9) Chloride Level 98 mEQ/L (98-107) Carbon Dioxide Level 23 mEQ/L (20-30) Anion Gap 17 (5-15) H Blood Urea Nitrogen 13 mg/dL (7-23) Creatinine 0.8 mg/dL (0.5-0.9) Estimat Glomerular Filtration Rate mL/min (>60) Glucose Level 138 mg/dL (74-106) H Calcium Level 8.7 mg/dL (8.6-10.2) Phosphorus Level 2.9 mg/dL (2.5-4.8) Magnesium Level 2.0 mg/dL (1.7-2.5) Total Bilirubin 0.7 mg/dL (0.0-1.2) Aspartate Amino Transf (AST/SGOT) 14 U/L (5-40) Alanine Aminotransferase (ALT/SGPT) 12 U/L (3-33) Alkaline Phosphatase 61 U/L (35-104) Troponin I < 0.30 ng/mL (<=0.30) C-Reactive Protein, Quantitative 15.7 mg/dL (< 0.5) H Total Protein 6.5 g/dL (6.6-8.7) L Albumin 3.2 g/dL (3.5-5.2) L Globulin 3.3 g/dL Albumin/Globulin Ratio 0.9 (1.0-2.7) L Triglycerides Level 59 mg/dL (< 150) Cholesterol Level 127 mg/dL (< 200) LDL Cholesterol 64 mg/dL (60-99) HDL Cholesterol 51 mg/dL (> 60) Cholesterol/HDL Ratio 2.5 (3.3-4.4) L Thyroid Stimulating Hormone (TSH) 3.430 uIU/mL (0.300-4.500) Intake and Output 03/29/17 03/30/17 19:00 07:00 Intake Total 1120 ml 560 ml Balance 1120 ml 560 ml Intake Oral 1120 ml 560 ml Other 0 ml # Voids 2 1 # Bowel Movements 1 1 Objective General: alert, cooperative, no distress, appears stated age Head: normocephalic, without obvious abnormality, atraumatic Eyes: conjunctivae/corneas clear. PERRL, EOM's intact Throat: lips, mucosa, and tongue normal. MMM Neck: supple, symmetrical, trachea midline, and no JVD Lungs: clear to auscultation bilaterally Heart: regular rate and rhythm, S1, S2 normal, no murmur, click, rub or gallop Abdomen: soft, non-tender, non-distended, bowel sounds normal; no masses or organomegaly Extremities: extremities normal, atraumatic, no cyanosis or edema Pulses: 2+ and symmetric Skin: skin color, texture, turgor normal; no rashes or lesions Neurologic: grossly normal, no focal deficits Assessment/Plan Problem List: (1) Hyperglycemia (2) Chest pain Assessment & Plan: Non cardiac-see cardiology note. (3) HTN (hypertension) Assessment & Plan: Cont cardizem, vasoted and dyazide. Assessment/Plan Discharge home today. Follow up with primary care physician 04/05/17 GLADYS HARRIS March 30, 2017 13:16
[2017-03-30 15:20] VITALS: BP 123/73
[2017-03-30] MEDS ORDERED: NovoLOG Insulin Flexpen SUBQ SCH (16:30)
--- NOTE | 2017-03-30 23:59 | Cardiology Progress Note ---
Assessment/Plan Assessment/Plan 1. Non-cardiac chest pain in view of chest pain quality and signs of reproducibility, no need for stress test. Echo reveals normal LV systolic function with LVEF at 55%, and no wall motion abnormalities. 2. Normal left ventricular systolic function with LVEF at 55%. 3. Mild pulmonary HTN. 4. Paroxysmal atrial fibrillation, short run, converted to ST spontaneously, will monitor the rhythm, if recurrent will decide on NOAC therapy. Subjective Subjective Sinus tachycardia at 108. A paroxysm of atrial fibrillation was seen this morning, converted to ST spontaneously. Objective Last 24 Hour Vital Signs Date Time Temp Pulse Resp B/P Pulse Ox O2 Delivery O2 Flow Rate FiO2 03/30/17 15:20 98.2 92 18 123/73 95 Room Air 03/30/17 12:02 125 03/30/17 12:00 94 03/30/17 11:16 98.3 111 18 145/71 03/30/17 08:10 98.2 101 18 133/75 94 Nasal Cannula 2.0 03/30/17 08:00 131 03/30/17 04:45 101 20 123/60 96 Nasal Cannula 2.0 03/30/17 04:00 98.6 87 20 146/76 94 Nasal Cannula 2.0 28 03/30/17 04:00 116 03/30/17 00:00 81 03/30/17 00:00 98.6 85 20 145/76 94 Nasal Cannula 2.0 28 Intake and Output 03/29/17 03/30/17 19:00 07:00 Intake Total 1120 ml 560 ml Balance 1120 ml 560 ml Intake Oral 1120 ml 560 ml Other 0 ml # Voids 2 1 # Bowel Movements 1 1 2D Echo: LVEF 55%, Grade I LVDD, Mild MR, RVSP 44 mmHg, Mild LVH Laboratory Tests Test 03/30/17 07:00 White Blood Count 12.1 K/UL (4.8-10.8) H Red Blood Count 4.29 M/UL (4.20-5.40) Hemoglobin 13.4 G/DL (12.0-16.0) Hematocrit 41.3 % (37.0-47.0) Mean Corpuscular Volume 96 FL (80-99) Mean Corpuscular Hemoglobin 31.1 PG (27.0-31.0) H Mean Corpuscular Hemoglobin Concent 32.3 G/DL (32.0-36.0) Red Cell Distribution Width 13.1 % (11.6-14.8) Platelet Count 177 K/UL (150-450) Mean Platelet Volume 7.9 FL (6.5-10.1) Neutrophils (%) (Auto) 67.7 % (45.0-75.0) Lymphocytes (%) (Auto) 18.5 % (20.0-45.0) L Monocytes (%) (Auto) 12.0 % (1.0-10.0) H Eosinophils (%) (Auto) 0.8 % (0.0-3.0) Basophils (%) (Auto) 1.1 % (0.0-2.0) Erythrocyte Sedimentation Rate 47 MM/HR (0-30) H Prothrombin Time 11.9 SEC (9.30-11.50) H Prothromb Time International Ratio 1.2 (0.9-1.1) H Activated Partial Thromboplast Time 37 SEC (23-33) H Sodium Level 138 mEQ/L (135-145) Potassium Level 4.3 mEQ/L (3.4-4.9) Chloride Level 98 mEQ/L (98-107) Carbon Dioxide Level 23 mEQ/L (20-30) Anion Gap 17 (5-15) H Blood Urea Nitrogen 13 mg/dL (7-23) Creatinine 0.8 mg/dL (0.5-0.9) Estimat Glomerular Filtration Rate mL/min (>60) Glucose Level 138 mg/dL (74-106) H Hemoglobin A1c 6.9 % (< 6.0) H Calcium Level 8.7 mg/dL (8.6-10.2) Phosphorus Level 2.9 mg/dL (2.5-4.8) Magnesium Level 2.0 mg/dL (1.7-2.5) Total Bilirubin 0.7 mg/dL (0.0-1.2) Aspartate Amino Transf (AST/SGOT) 14 U/L (5-40) Alanine Aminotransferase (ALT/SGPT) 12 U/L (3-33) Alkaline Phosphatase 61 U/L (35-104) Troponin I < 0.30 ng/mL (<=0.30) C-Reactive Protein, Quantitative 15.7 mg/dL (< 0.5) H Total Protein 6.5 g/dL (6.6-8.7) L Albumin 3.2 g/dL (3.5-5.2) L Globulin 3.3 g/dL Albumin/Globulin Ratio 0.9 (1.0-2.7) L Triglycerides Level 59 mg/dL (< 150) Cholesterol Level 127 mg/dL (< 200) LDL Cholesterol 64 mg/dL (60-99) HDL Cholesterol 51 mg/dL (> 60) Cholesterol/HDL Ratio 2.5 (3.3-4.4) L Thyroid Stimulating Hormone (TSH) 3.430 uIU/mL (0.300-4.500) Objective HEENT: Atraumatic and normocephalic. Anicteric. Pupils are equal, round, and reactive to light and accommodation. Extraocular muscles are intact. NECK: JVP is less than 5 cm. No carotid bruits. Carotid upstroke is 2+ bilaterally. CARDIOVASCULAR: Normal S1 and S2. Regular rate and rhythm. No murmurs, gallops, or rubs. PMI is at fourth intercostal space at the midclavicular line. There is tenderness over the left side of the chondrocostal like joint. Tenderness also exenterated with the patient moving from the supine position to the left lateral position. LUNGS: Lungs are clear to auscultation bilaterally. ABDOMEN: Soft, nontender, and nondistended. Obese. No hepatosplenomegaly. Positive bowel sounds. EXTREMITIES: No evidence of edema, clubbing, or cyanosi SHALOM GONZALEZ March 30, 2017 23:59
--- NOTE | 2017-03-31 14:49 | Cardiology Report ---
APPROVED REPORT EKG Measurement Heart [id number] Normal sinus rhythm Low voltage QRS Incomplete right bundle branch block Cannot rule out Anterior infarct, age undetermined Abnormal ECG
--- NOTE | 2017-04-01 08:33 | Cardiology Report ---
APPROVED REPORT EXAM: Two-dimensional and M-mode echocardiogram with Doppler and color Doppler. INDICATION Left Ventricular Function M-Mode DIMENSIONS IVSd1.5 (0.7-1.1cm)Left Atrium (MM)4.6 (1.6-4.0cm) LVDd6.0 (3.5-5.6cm)Aortic Root3.5 (2.0-3.7cm) PWd1.4 (0.7-1.1cm)Aortic Cusp Exc.1.6 (1.5-2.0cm) LVDs4.6 (2.5-4.0cm) PWs2.9 cm Technically difficult study due to poor acoustic windows. Study quality precludes accurate assessment of regional wall motion. Mild left ventricular enlargement. Normal left ventricular systolic function and wall motion. Left ventricular ejection fraction estimated to be 55-60 %. Mild left ventricular hypertrophy. Small pericardal effusion. Mild left atrial enlargement. Right cardiac chamber sizes are within normal limits. Mild focal aortic valve thickeing opening not well seen Mildly thickened mitral valve leaflets with normal excursion. Mild mitral annulus and aortic root calcification. Pulmonic valve not well visualized. Normal tricuspid valve structure. IVC dilated at 1.7 cm with physiologic collapse. A color flow and spectral Doppler study was performed and revealed: No aortic regurgitation.aortic valve peak gradient 19, mean gradietn 10 mmhg Mild mitral regurgitation. Mitral diastolic velocities suggest reduced left ventricular relaxation (Grade I). Mild tricuspid regurgitation. Tricuspid systolic velocities suggests peak right ventricular systolic pressure of 44 mmHg, consistent with mild pulmonary hypertension. No pulmonic regurgitation present.
--- NOTE | 2017-04-01 15:17 | Discharge Summary ---
Discharge Summary Hospital Course Date of Admission March 29, 2017 at 00:02 Date of Discharge March 30, 2017 at 15:52 Admitting Diagnosis chest pain HPI Marina Quinones is a 76 year old female who was admitted on March 29, 2017 at 00 :02 for Chest Pain Hospital Course dc summary #[id number] Discharge Medications Continued Medications: Ibuprofen* (Motrin*) 600 Mg Tablet 600 MG ORAL FOUR TIMES A DAY, #30 TAB 0 Refills Losartan Potassium (Losartan Potassium) 25 Mg Tablet Unknown Dose PO, TAB Discharge Condition Upon Discharge: stable Discharge Disposition Patient was discharged to Home () Discharge Diagnoses: Renny (Arturo)Marlen NP April 01, 2017 15:17
--- NOTE | 2017-04-02 03:01 | Discharge Summary 2 SIG ---
DATE OF ADMISSION: 03/29/2017 DATE OF DISCHARGE: 03/30/2017 The patient is admitted under Dr. Gant. REASON FOR ADMISSION: The patient is a 76-year-old female, brought in by cancer genetics assistant due to the chest pain. The pain was sharp, constant, central, nonradiating, and worse with inspiration. The patient denied fever or chills. The patient denied shortness of breath or exertional shortness of breath. The patient denied nausea, vomiting, diarrhea, or abdominal or flank pain. No previous history of myocardial infarction. No history of PE. No leg pain. No leg swelling. The patient was given nitroglycerin spray by paramedics, which helps slightly. The patient has a history of hypertension and no other medical problem. Workup in the emergency room revealed elevated blood pressure 170/83, otherwise pulse oximetry was stable on the room air. Stable heart rate. Normal sinus rhythm on monitor. Troponin negative. Afebrile. EKG revealed normal sinus rhythm with T-wave inversion in V1 to V3. The patient was admitted for further management. CTA was done to rule out PE versus PE. CTA was negative for evidence of PE. No evidence of aneurysm or dissection. Noted a small pericardial effusion with enlarged heart. Some degrees of mild fibrosis not excluded. No consolidation or pleural effusion were identified. ADMITTING DIAGNOSIS: Includes chest pain, rule out acute coronary syndrome. HOSPITAL COURSE: The patient was admitted to telemetry floor. Serial troponins were negative. Cardiology consult was requested. D[employer] Worker seen and evaluated the patient. Per chief operator lock tender, 12-lead EKG showed sinus rhythm with right bundle-branch block, possible old inferior wall infarct, and possible old anterolateral infarct. No acute ST or T-wave abnormalities were identified though there were nonspecific ST and T-wave changes. Chest x-ray showed no evidence of pulmonary emboli. Echocardiogram revealed ejection fraction of 55% to 60%, evidence of mild left ventricular hypertrophy, small pericardial effusion, and right ventricular systolic pressure of 44 consistent with a mild pulmonary hypertension. According to chief operator lock tender, chest pain is noncardiac and the patient does not need a stress test. Chest pain likely due to the musculoskeletal etiology as there is the presence of tenderness over the costochondral joint of the left sternal border, which is worse with inspiration and movement. The patient is started on nonsteroid anti-inflammatory medication. The patient undergone serial troponin and negative acute ischemic changes. On EKG, the patient was ruled out for acute coronary syndrome. The patient had a short run of paroxysmal atrial fibrillation and spontaneously converted to normal sinus rhythm. No recurrence. The patient needs to be observed as outpatient and if there is any recurrence of atrial fibrillation, to start the patient on anticoagulation. Blood sugar was managed with sliding scale of insulin with stable hemoglobin A1c at goal, 6.9. Blood pressure was managed with Cozaar and Dyazide, continue at home, was stable. The patient was stable for discharge home. DISCHARGE DIAGNOSES: Includes: 1. Noncardiac chest pain. 2. Osteochondritis. 3. Diabetes mellitus. 4. Mild pulmonary hypertension. 5. Paroxysmal atrial fibrillation. DISCHARGE MEDICATIONS: See medication reconciliation list. DISCHARGE INSTRUCTIONS: The patient is discharged home. Follow up with the primary medical doctor. Observe for any recurrence of atrial fibrillation. Might need anticoagulation. Julio Gant M.D. I have been assigned to dictate discharge summary on this account and I was not involved in the patient's management. Marlen Lawson ([facility] NEliazar DR: JOSE JOB#: [id number] CC:
== END 2017-03-30 15:52 | disposition home or self-care (01) | DRG 206 ==
LOC: EDBD 23:07 → EMR 23:56 → 2E 03-29 00:02 → EDBEDREQ 03-29 00:51 → 2E 03-29 03:43
PROC: BW251ZZ Computerized Tomography (CT Scan) of Chest, Abdomen and Pelvis using Low Osmolar Contrast (ICD-10-PCS; principal; 2017-03-29)
DX: M94.0 Chondrocostal junction syndrome [Tietze] (principal); I27.2 Other secondary pulmonary hypertension; I48.0 Paroxysmal atrial fibrillation; K21.9 Gastro-esophageal reflux disease without esophagitis; R07.89 Other chest pain; R73.9 Hyperglycemia, unspecified; I10 Essential (primary) hypertension
CPT/HCPCS: 36415; 71010; 71275; 72191; 74175; 80053; 80061; 82550; 82553; 83036; 83735; 84100; 84443; 84484; 85025; 85379; 85610; 85651; 85730; 86140; 90732; 93005; 93306; 94640; 94664; J1815; J7620